=== PATIENT | female | born 1945 | race Caucasian/White ===

== ENCOUNTER 2017-01-05 11:40 | Observation (INO) | payer MEDICARE ==
--- NOTE | ~2017-01-05 | CT3 ---
[facility] A Service of [facility] & [facility] RADIOLOGY TEXT RESULTS PATIENT: LEX DOBBINS LOCATION: [facility] 55- : 46 UNIT #: [id number] AGE: [address]: Nelli Dockery MD SEX: F ORDER DR: [id number] [facility] [address] [facility]. [place], [place] [address] [id number] MR#: [id number] Acc #: [id number] NAME: LEX DOBBINS : 1945 SEX: F STUDY DATE/TIME: 01/06/2017 12:00 UNIT: [facility] ROOM: [facility] STUDY DESCRIPTION: CT Abd and Pelv WWo Cont Attending Physician: Nelli Dockery M.D. Ordering Physician: Patrick Shirley Jr., M.D. Primary Care Physician: Abner Atkinson M.D. MEDICAL IMAGING REPORT This report is preliminary unless electronic signature is present EXAM CT abdomen and pelvis with without contrast, 01/06/2017 at 12 o'clock hours HISTORY Evaluate renal masses seen on CT angiogram of the chest performed 01/05/2017. No abdominal complaints. COMPARISON CT angiogram of the chest, 01/05/2017 TECHNIQUE Helical noncontrasted images were obtained from the lung bases to the iliac crests. Postcontrast arterial phase images were obtained through the abdomen. 90-second delayed phase images were obtained through the abdomen and pelvis and 3-minute delayed phase contrast images were obtained through the abdomen. Sagittal and coronal reconstructions were performed on the 90-second delayed phase series. Contrast was Isovue-370, 100 mL. Total exam DLP 2,792 mGy- cm. This CT exam was performed with one or more of the following radiation dose reduction techniques: automatic exposure control, adjustment of mA and/or kV according to patient size, and iterative reconstruction. FINDINGS Images through the lung bases are clear. There are no pleural effusions. Hiatal hernia is unchanged. The noncontrasted images through the abdomen demonstrate increased density in the gallbladder related to vicarious excretion of contrast from yesterday's CT. There are no gallstones. The right kidney has a normal noncontrasted appearance. The left kidney confirms the presence of a mass, mixed in density with areas measuring as low as 0 and as high as 34. There are calcifications along the anterior margin of the mass. [facility] A Service of [facility] RADIOLOGY TEXT RESULTS PATIENT: LEX DOBBINS LOCATION: [facility] 551- : 46 UNIT #: [id number] AGE: [address]: Nelli Dockery MD SEX: F ORDER DR: Postcontrast arterial phase, 90-second delayed phase and 3-minute delayed phase images demonstrate heterogeneous enhancement in this mass which measures up to 5.0 x 5.3 x 4.9 cm. This is contained within the renal capsule with no extension into the renal vein or in the perinephric space or Gerota's fascia. This is most likely renal cell carcinoma until proven otherwise. The adrenal glands are normal. The ureters are normal. The stomach, small bowel and colon have a normal noncontrasted appearance. There is no lymphadenopathy or ascites. CT pelvis demonstrates a normal appearance to the bladder. No bone lesions are seen. IMPRESSION CT abdomen and pelvis confirms the presence of a heterogeneously enhancing suspicious mass in the left kidney measuring up to 5.3 x 5.0 x 4.9 cm. This measures between 0 and 34 Hounsfield units precontrast and up to 150 Hounsfield units postcontrast. This is a renal cell carcinoma until proven otherwise. This is contained within the renal capsule with no extension into the perinephric fat or Gerota's fascia. The left renal vein appears normal and there is no adenopathy or distant metastatic disease seen. Urologic surgical consultation is recommended. STAT * RESULT Dictated by... Debra Cavazos M.D. THIS IS AN ELECTRONICALLY VERIFIED REPORT Debra Cavazos M.D. at 01/06/2017 1:34 PM MITCHELL/abilio TD: 01/06/2017 13:16 JOB #: [id number] MEDICAL IMAGING REPORT COPY
--- NOTE | ~2017-01-05 | CR72 ---
[facility] A Service of [facility] RADIOLOGY TEXT RESULTS PATIENT: LEX DOBBINS LOCATION: [facility] 551-01 : 46 UNIT #: [id number] AGE: [address]: Nelli Dockery MD SEX: F ORDER DR: [id number] [facility] [address] [facility]. [place], [place] [address] [id number] I MR#: [id number] Acc #: [id number] NAME: LEX DOBBINS : 1945 SEX: F STUDY DATE/TIME: 01/05/2017 11:31 UNIT: [facility] ROOM: [id number] STUDY DESCRIPTION: CR Chest Single View Portable Attending Physician: Nelli Dockery M.D. Ordering Physician: Gomez Gar M.D. Primary Care Physician: Abner Atkinson M.D. MEDICAL IMAGING REPORT This report is preliminary unless electronic signature is present EXAM Frontal chest, 01/05/2017 INDICATIONS Chest pain, dyspnea, left arm tingling, shortness of air since 10:00 today. TECHNIQUE Frontal chest, no comparisons. FINDINGS Cardiac silhouette is borderline in size. Interstitial prominence throughout both lungs without distinct cephalization of the vasculature is more in keeping with underlying fibrosis and scarring than edema but should be correlated clinically. We have no comparisons for assessment of chronicity. There is no pneumothorax, effusion or dense consolidation. IMPRESSION 1. Borderline cardiac size. Interstitial prominence is nonspecific but favored to represent underlying fibrosis and scarring, rather than mild edema. Correlate with volume status. We have no comparisons. Dictated by... Terrell Turner M.D. THIS IS AN ELECTRONICALLY VERIFIED REPORT Terrell Turner M.D. at 01/06/2017 7:29 AM JASON/courtney TD: 01/05/2017 17:47 JOB #: [id number] MEDICAL IMAGING REPORT [facility] A Service of [facility] RADIOLOGY TEXT RESULTS PATIENT: LEX DOBBINS LOCATION: B 551-01 : 46 UNIT #: [id number] AGE: [address]: Nelli Dockery MD SEX: F ORDER DR: COPY
--- NOTE | ~2017-01-05 | CT16 ---
[facility] A Service of [facility] & [facility] RADIOLOGY TEXT RESULTS PATIENT: LEX DOBBINS LOCATION: [facility] 551-01 : 46 UNIT #: [id number] AGE: [address]: Nelli Dockery MD SEX: F ORDER DR: [id number] [facility] [address] [facility] [place], [place] [address] [id number] E MR#: [id number] Acc #: [id number] NAME: LEX DOBBINS : 1945 SEX: F STUDY DATE/TIME: 01/05/2017 14:16 UNIT: [facility] ROOM: STUDY DESCRIPTION: CT Angio Chest for PE Attending Physician: Home Matthews D.O. Ordering Physician: Gomez Gar M.D. Primary Care Physician: Abner Atkinson M.D. MEDICAL IMAGING REPORT This report is preliminary unless electronic signature is present EXAM CT scan of the chest with contrast, 01/05/2017. HISTORY Chest pain beginning at 10 a.m. this morning. History of hypertension. Evaluate for pulmonary embolus. TECHNIQUE Spiral CT was performed through the chest following intravenous contrast administration using pulmonary embolism protocol. 3-D reconstructions of the chest were then performed following intravenous contrast administration. This CT exam was performed with one or more of the following radiation dose reduction techniques: automatic exposure control, adjustment of mA and/or kV according to patient size, and iterative reconstruction. FINDINGS There is no CT evidence for pulmonary embolus. The heart is normal in size. There is no significant thoracic adenopathy. There are no pleural effusions. There is a moderate sized hiatal hernia. The lungs are clear. Images of the upper abdomen demonstrate incompletely visualized heterogeneously enhancing mass on the midportion of the left kidney, measuring 4.4 cm x 4.3 cm. It is highly suspicious for renal cell carcinoma. Correlation with nonemergent CT scan of the kidneys with contrast, using dedicated renal protocol or renal MRI with gadolinium, is strongly recommended for further evaluation. Findings were called to the ordering clinician at 2:45 p.m. on 01/05/2017. IMPRESSION 1. No CT evidence for pulmonary embolus. 2. Moderate-sized hiatal hernia. [facility]. [facility] A Service of [facility] & [facility] RADIOLOGY TEXT RESULTS PATIENT: LEX DOBBINS LOCATION: [facility] 551-01 : 46 UNIT #: [id number] AGE: [address]: Nelli Dockery MD SEX: F ORDER DR: 3. 4.4-cm heterogeneously enhancing mass on the midportion of the left kidney, which is incompletely visualized on this examination. The mass is highly suspicious for renal cell carcinoma. Correlation with nonemergent CT scan of the abdomen and pelvis with contrast, using dedicated renal protocol or renal MRI, with gadolinium, is recommended for further evaluation of this finding. STAT * RESULT Dictated by... Alton Christian M.D. THIS IS AN ELECTRONICALLY VERIFIED REPORT Alton Christian M.D. at 01/06/2017 10:48 AM TRAIVS/aura TD: 01/05/2017 14:56 JOB #: [id number] MEDICAL IMAGING REPORT COPY
--- NOTE | ~2017-01-05 | EKG ---
PATIENT: LEX DOBBINS UNIT #: [id number] Ventricular Rate: 64 BPM Atrial Rate: 64 BPM P-R Interval: 144 ms QRS Duration: 80 ms Q-T Interval: 430 ms QTC Calculation(Bezet): 443 ms P Boyd: 55 degrees Calculated R Boyd: 75 degrees Calculated T Boyd: -14 degrees Diagnosis Line: Normal sinus rhythm Diagnosis Line: non diagnostic Q waves in leads 1 and Avl Diagnosis Line: Abnormal ECG Diagnosis Line: When compared with ECG of 06-JAN-2017 05:33, Diagnosis Line: (unconfirmed) Diagnosis Line: T wave inversion no longer evident in Anterior Diagnosis Line: leads Diagnosis Line: Confirmed by CHUCK ANGEL MD ([id number]) on 01/07/2017 Diagnosis Line: 7:32:37 PM INTERPRETING MD: STANLEY TORO
--- NOTE | ~2017-01-05 | HP ---
Unit #: [id number] #: [id number] Patient: LEX DOBBINS [id number] [facility]. [address] [place], [place] [address] [id number] I MR#: [id number] NAME: LEX DOBBINS ROOM: 551 Age: 71 Sex: F Admission Date: 01/05/2017 : 1945 Attending Physician: Nelli Dockery M.D. Primary Care Physician: Abner Atkinson M.D. HISTORY AND PHYSICAL HISTORY OF PRESENT ILLNESS This is a 71-year-old white female, with a history of hypertension, hyperlipidemia but intolerant to statins, a nonsmoker, who came to the emergency room with recurrent midsternal chest pain that radiating into the left side of her chest wall into her left shoulder. She said it started yesterday morning after she got up. She said it was a pushing/aching sensation. She said it was waxing and waning at first but then intensified. She got a little clammy and short of breath. She could not get comfortable in any sitting position. She said she got up and walked around. She took a baby aspirin and it eased off, and then a couple hours later it reoccurred. On a pain scale of 1-10, she rated it about a 9 or 10. She said she just felt short of breath and became weak and clammy. By the time she made it to the emergency room, the pain had eased off again. She said they gave her additional 3 baby aspirin and some sublingual nitroglycerin. She denies any pain in her jaws, bilateral neck, back or abdomen. She had not had any recent nausea, vomiting or diarrhea. No dizziness, pre-syncope or syndrome. Denies paroxysmal nocturnal dyspnea or orthopnea. No recent cough, fever or chills. In the emergency room the patient's blood pressure was 155/69, heart rate 95, respirations 18, temperature 97.0. O2 sat is 94%. Initial cardiac enzymes are negative. EKG does show some T wave inversion and 0.[address] depression in inferior and anterolateral leads, lateral Q waves noted. The patient's chest x-ray shows interstitial prominence, nonspecific. Questionable fibrosis versus mild edema. CT of the chest was performed. It revealed no pulmonary embolism, moderate hiatal hernia. Also showed a 4.4 cm mass in the mid left kidney, questionable renal carcinoma. The patient's D-dimer was elevated at 2,900. BNP was 312. The patient received additional aspirin and Nitrostat. The patient will be admitted with chest pain for further evaluation. Also, nephrology and urology have been consulted due to the incidental finding of the renal mass. PAST MEDICAL HISTORY 1. Hypertension. 2. Hyperlipidemia, intolerant to statins. 3. Stress test 2012 at [facility]; told normal. Details unavailable. 4. In 04/2013 two-D echo - LVEF of greater than 55%, mild left atrial enlargement, iqcwdxeo-hi-howoex mitral annular calcification with mild mitral regurgitation, mild tricuspid regurgitation with elevated RVSP of 40 to 50 mmHg. AV leaflets sclerotic but no stenosis. 5. Nonsmoker. Unit #: [id number] #: [id number] Patient: LEX DOBBINS PAST SURGICAL HISTORY None. HOME MEDICATIONS 1. Aspirin 81 mg p.o. daily. 2. Diltiazem 24 hour 240 mg 1 tablet daily. 3. Lisinopril 20 mg p.o. at bedtime. ALLERGIES No known drug allergies. SOCIAL HISTORY The patient lives with her spouse. The patient still works at [employer]. She is very active, exercises by walking frequently. No alcohol, tobacco or illicit drug abuse. FAMILY HISTORY Her mother in her 60s of congestive heart failure. She had some type of valve surgery. Her father had some type of valve surgery and in his 60s of coronary artery disease. She had an older brother who in his 50s after having coronary artery bypass graft, but he was a heavy drinker. REVIEW OF SYSTEMS CONSTITUTIONAL: Denies fevers or chills. No recent weight gain or weight loss. HEENT: Denies headache or dizziness. No visual or hearing changes. No lymphadenopathy, thyromegaly. No difficulty swallowing. CARDIOVASCULAR: Chest pain present. Denies palpitations. Denies increased lower extremity edema. PULMONARY: Increased shortness of breath with the chest pain. Denies paroxysmal nocturnal dyspnea or orthopnea. GI: Denies nausea, vomiting, diarrhea or abdominal pain. NEUROLOGIC: No focal weakness. PHYSICAL EXAMINATION GENERAL: On exam, the patient is a 71-year-old white female, in no acute respiratory distress. She is awake, alert and oriented. VITAL SIGNS: Currently blood pressure is 129/58, heart rate 68, respirations 18, temperature 98.7, O2 sats 95% on room air. NECK: Trachea midline. No thyromegaly or lymphadenopathy. Normal carotid upstrokes. No jugular venous distention. HEART: S1, S2, regular rate and rhythm. A soft systolic murmur at left sternal border. LUNGS: Diminished with some faint crackles and coarse rales in right base; otherwise, clear. ABDOMEN: Soft, nontender. Positive bowel sounds present. EXTREMITIES: Pedal pulses are palpable. No pedal edema. DIAGNOSTIC STUDIES LABORATORY DIAGNOSTIC DATA: Glucose is 89, BUN 12, creatinine 0.9, eGFR above 60, sodium 139, potassium 4.3, chloride 105, CO2 23, calcium 9.3, total protein 7.3, albumin 4, bili total 0.5, AST 19, ALT 14, alkaline phosphatase 79. BNP is 312. WBC is 5.7, hemoglobin 13.6, hematocrit 41.4, platelets 192. Initial cardiac enzymes - CK-MB 1.6, troponin less than 0.05; CK-MB 1.5, troponin less than let 0.05. D-dimer is 2,909. Unit #: [id number] #: [id number] Patient: LEX DOBBINS IMAGING: Chest x-ray shows borderline cardiac size, interstitial prominence that is nonspecific but favored to represent underlying fibrosis and scarring rather than mild edema. CT of chest with contrast - No evidence of pulmonary embolism. Moderate sized hiatal hernia. A 4.4 cm enhancing mass in the mid portion of the left kidney; suspicion for renal cell carcinoma. CARDIOVASCULAR: EKG shows normal sinus rhythm with ventricular rate 93 beats per minute. Q waves in V4-V6. ST-T wave abnormalities in inferior and anterolateral leads with 0.5 mm to [address] depression in inferior and anterolateral leads. Otherwise, slow R wave progression. IMPRESSION 1. Chest pain. 2. Dyspnea. 3. Unstable angina. 4. Renal mass, questionable malignancy. 5. Hypertension. 6. Hyperlipidemia - intolerant to statin. 7. LVEF of greater than 55% with mild left atrial enlargement, uqestvrh-um-xtsvly mitral anular calcification with mild mitral regurgitation, mild tricuspid regurgitation with RVSP of 40 to 50 mmHg. AV leaflets sclerotic with no stenosis. 8. Nonsmoker. PLAN 1. The patient has been admitted to followup her chest pain. Will continue to monitor cardiac enzymes. Her EKG does have some EKG changes indicative of ischemia. With the patient's multiple risk factors, including strong family history of coronary artery disease, it is felt that she needs a cardiac cath to further evaluate ischemic heart disease. 2. Discussed with the patient the risks and benefits, including risk of bleeding, myocardial infarction, stroke and even . The patient verbalizes understanding and agrees to proceed. 3. The patient is continued on aspirin, beta-trisha and will start on pravastatin 40 mg p.o. daily. The patient states she took Lipitor and Crestor in the past. Will attempt to try the pravastatin. 4. Increase her Lovenox to 1 mg/kg subcu b.i.d. 5. Obtain a two-D echo to reevaluate her LV function and valves. 6. Will repeat a troponin later today and an EKG. 7. Dr. Goodman has seen the patient for the left renal mass. Plans are to a CT of the abdomen and pelvis with specific instructions for thin cuts through the kidneys to evaluate. Likely will need some type of surgical intervention in the near future. 8. On exam, there are no signs or symptoms of acute congestive heart failure. Further recommendations pending the heart catheterization and the echo. Further recommendations pending per Dr. Dockery. Dictated by Nely Hobbs A.P.R.N. for Nelli Dockery M.D. CEC/db Unit #: [id number] #: [id number] Patient: LEX DOBBINS TD: 01/06/2017 09:28 JOB #: [id number] HISTORY AND PHYSICAL X Nely Hobbs APRN HISTORY AND PHYSICAL
--- NOTE | ~2017-01-05 | EKG ---
PATIENT: LEX DOBBINS UNIT #: [id number] Ventricular Rate: 93 BPM Atrial Rate: 93 BPM P-R Interval: 170 ms QRS Duration: 80 ms Q-T Interval: 372 ms QTC Calculation(Bezet): 462 ms P [place]: 34 degrees Calculated R [place]: 99 degrees Calculated T [place]: -19 degrees Diagnosis Line: Normal sinus rhythm Diagnosis Line: Septal infarct , age undetermined Diagnosis Line: Lateral infarct , age undetermined Diagnosis Line: Cannot rule out Inferior infarct , age Diagnosis Line: undetermined Diagnosis Line: Abnormal ECG Diagnosis Line: No previous ECGs available Diagnosis Line: Confirmed by GLEN HARDY MD ([id number]) on Diagnosis Line: 01/06/2017 12:06:42 AM INTERPRETING MD: ANTONY TORO
--- NOTE | ~2017-01-05 | CO ---
Unit #: [id number] #: [id number] Patient: LEX DOBBINS [id number] [address] [place], [place] [address] [id number] I MR#: [id number] NAME: LEX DOBBINS ROOM: 55 Age: 71 Sex: F Admission Date: 01/05/2017 : 1945 Attending Physician: Nelli Dockery M.D. Primary Care Physician: Abner Atkinson M.D. Consultation Date: 01/06/2017 CONSULTATION REPORT JOB NOTE: VERIFY CC CHIEF COMPLAINT Chest pain. HISTORY OF PRESENT ILLNESS Ms. Weaver is a 71-year-old woman, who had some chest pain. CT scan of the chest showed 4.4 left renal mass which looks suspicious for renal cell carcinoma. She denies gross hematuria. She denies flank pain. The CAT scan potentially that was found this mass, which she is with and sent this for. PAST MEDICAL HISTORY Negative for urologic problems. Positive for high blood pressure, takes lisinopril, diltiazem, and aspirin. SOCIAL HISTORY She denies smoking. She does drink. FAMILY HISTORY Noncontributory. ALLERGIES No known drug allergies. PHYSICAL EXAMINATION VITAL SIGNS: Afebrile. Vital signs stable. ABDOMEN: Soft. No rebound or guarding. There is still no CVA tenderness. SKIN: No bruising. No rash. DIAGNOSTIC STUDIES LABORATORY RESULTS: Creatinine 0.9. Urinalysis is normal. There is no microscopic hematuria. White count is normal. ASSESSMENT Left renal mass seen on CT of the chest. Order CT scan of the abdomen and pelvis with and without IV contrast. The patient is undergoing cardiac evaluation for chest pain. We will continue to follow along with you. Thank you for the kind referral. Dictated by... Unit #: [id number] #: [id number] Patient: LEX DOBBINS Felisa Lees/aris TD: 01/06/2017 08:20 JOB #: [id number] CC: Sanjiv Montenegro M.D. CONSULTATION REPORT X Joaquín Zurita MD CONSULTATION REPORT
--- NOTE | ~2017-01-05 | DS ---
Unit #: [id number] #: [id number] Patient: LEX DOBBINS [id number] [facility] [address] [place], [place] [address] [id number] MR#: [id number] NAME: LEX DOBBINS ROOM: 55 Age: 71 Sex: F Admission Date: 01/05/2017 : 1945 Discharge Date: 01/08/2017 Attending Physician: Nelli Dockery M.D. Primary Care Physician: Abner Atkinson M.D. DISCHARGE SUMMARY JOB NOTE: CC: [facility]ICIAN. DISCHARGE DIAGNOSES 1. Chest pain, ruled out for an acute myocardial infarction. 2. Status post cardiac catheterization on 01/07/[address] Perez at [facility] that reveals left main normal. Left anterior descending artery normal. Circumflex artery with 50% to 60% stenosis mid vessel. Right coronary artery with mid segment stenosis of 70%. Posterior descending artery and posterior left ventricular branches normal. Ejection fraction of 60%. 3. Hypertension. 4. Hyperlipidemia. 5. Statin intolerance. 6. Left renal mass, questionable malignancy. 7. Nonsmoker. DISCHARGE MEDICATIONS Ranexa 500 mg b.i.d., Imdur 30 mg daily, metoprolol tartrate 50 mg b.i.d., and aspirin 81 mg daily. HOSPITAL COURSE This is a 71-year-old female who presented to the emergency room with a complaint of shortness of breath and chest pain. She was ruled out for an acute myocardial infarction where her cardiac enzymes and troponin were negative. In the emergency room, CTA of the chest was done to rule out pulmonary embolism, of which there was no evidence. There was an incidental finding of a 4.4 cm mass in the left kidney that was highly suspicious for renal cell carcinoma. CT of the abdomen and pelvis revealed a left kidney mass of 5.3 x 5.0 x 4.9 cm that was suspicious for renal cell carcinoma until proven otherwise. There was no evidence of metastatic disease. [facility] was asked to see the patient where they felt that the mass was malignant. She will need to be cleared for surgery first however. Renal was asked to see the patient and she was started on Mucomyst and IV fluids prior to cardiac catheterization to prevent contrast-induced nephropathy. She underwent cardiac catheterization, where she was found to have 50% to 60% stenosis in the left circumflex artery and 70% to 75% in the right coronary artery. The patient will need to be tried on medical therapy and antianginal control with Ranexa. Her renal function remained normal. Cholesterol levels were obtained, which found her to have elevated cholesterol of 257 and elevated LDL of 189. The patient has been at home on rosuvastatin and Lipitor was discontinued. Dr. Dockery felt that the patient could undergo surgery at low to moderate, but acceptable risk. She is stable for discharge today. Unit #: [id number] #: [id number] Patient: LEX DOBBINS PHYSICAL EXAMINATION VITAL SIGNS: Blood pressure 122/65 and heart rate 62. CHEST: Clear to auscultation. HEART: S1 and S2. Regular rate and rhythm. ABDOMEN: Soft. Bowel sounds are present. EXTREMITIES: Without leg edema. DIAGNOSTIC STUDIES LABORATORY RESULTS: Glucose 89, BUN 10, creatinine 0.5, sodium 137, potassium 3.8, cholesterol 257, triglycerides 96, LDL 189, HDL 49, and TSH 2.33. White count 4.7, hemoglobin 12.8, hematocrit 38.7, and platelet count 181. IMAGING STUDIES: CTA of the chest shows a 4.4 cm enhancing mass in the mid portion of the left kidney, highly suspicious for renal cell carcinoma. CT of the abdomen and pelvis reveals heterogeneously enhancing suspicious mass in the left kidney measuring up to 5.3 x 5.0 x 4.9 cm. This is renal cell carcinoma until proven otherwise. No distant metastatic disease was seen. CARDIOVASCULAR STUDIES: 2D echocardiogram on 01/06/2017 shows ejection fraction of 60% with impaired left ventricular relaxation. Normal structures of aortic and tricuspid valve. There is trace mitral regurgitation. CONSULTATIONS 1. Dr. Jacobs for renal management. 2. Dr. Zurita, Urology. DISCHARGE INSTRUCTIONS 1. The patient will be discharged home today. 2. Follow up with Dr. Dockery on 02/21/2017 at 9:45 a.m. 3. Follow up with Dr. Zurita in 2 weeks as an outpatient. 4. The patient is okay to undergo surgery of ybc-nf-kigmeptg, but acceptable risk. 5. 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 6. Continue on beta-trisha, Imdur, and Ranexa for angina control. Dictated by... Nish Vivar/aris TD: 01/09/2017 15:19 JOB #: [id number] DISCHARGE SUMMARY X Hari Albert APRN X DISCHARGE SUMMARY
--- NOTE | ~2017-01-05 | EKG ---
PATIENT: LEX DOBBINS UNIT #: [id number] Ventricular Rate: 60 BPM Atrial Rate: 60 BPM P-R Interval: 144 ms QRS Duration: 84 ms Q-T Interval: 454 ms QTC Calculation(Bezet): 454 ms P [place]: 19 degrees Calculated R [place]: 80 degrees Calculated T [place]: -36 degrees Diagnosis Line: Normal sinus rhythm Diagnosis Line: Lateral infarct (cited on or before 05-JAN-2017) Diagnosis Line: ST and T wave abnormality, consider anterior Diagnosis Line: ischemia Diagnosis Line: Abnormal ECG Diagnosis Line: When compared with ECG of 05-JAN-2017 11:17, Diagnosis Line: Vent. rate has decreased BY 33 BPM Diagnosis Line: Serial changes of evolving Lateral infarct Present Diagnosis Line: Confirmed by STANLEY TORO, CHUCK ([id number]) on 01/07/2017 Diagnosis Line: 7:27:00 PM INTERPRETING MD: STANLEY TORO
[2017-01-05 12:02] LABS: POC - CKMB 1.6 ng/mL (0.0-7.9); POC - TROPONIN <0.05 ng/mL (<=0.05)
[2017-01-05 13:08] LABS: BASOPHIL% 0.7 % (0-2.5); EOSINOPHIL# 0.1 X10e3 (0-0.7); EOSINOPHIL% 1.3 % (0.0-7.0); LYMPHOCYTE# 1.5 X10e3 (1.0-3.5); LYMPHOCYTE% 24.5 % (17.0-45.0); MEAN CELL VOLUME 91.3 FL (83-96); MEAN CORPUSCULAR HEMOGLOBIN 30.5 PG (28-34); MEAN CORPUSCULAR HGB CONC 33.4 g/dL (30-36); MEAN PLATELET VOLUME 10.9 FL (6.5-11.5); MONOCYTE# 0.4 X10e3 (0-1.0); MONOCYTE% 6.2 % (3.0-12.0); NEUTROPHIL# 4.2 X10e3 (1.5-7.1); NEUTROPHIL% 67.3 % (40-75); PLATELET COUNT 205 X10e3 (140-420); RED CELL DISTRIBUTION WIDTH 13.8 % (11.0-15.5); WHITE BLOOD COUNT 6.2 X10e3 (4.0-10.5)
[2017-01-05 13:11] LABS: DIFF IND NO
[2017-01-05 13:32] LABS: ALKALINE PHOSPHATASE 79 U/L (32-92); ALT (SGPT) 14 U/L (10-40); AST (SGOT) 19 U/L (10-42); BILIRUBIN,TOTAL 0.5 mg/dL (0.2-2.0); BLOOD UREA NITROGEN 12 mg/dL (9-23); BUN/CREATININE RATIO 17.14; CALCIUM SERUM 9.5 mg/dL (8.4-10.2); CARBON DIOXIDE 28 mmol/L (22-31); CHLORIDE 104 mmol/L (100-111); CREATININE SERUM 0.7 mg/dL (0.6-1.4); GLOM FILT RATE Estimated ABOVE60 mL/min (>60); GLUCOSE FASTING 110 mg/dL (70-110); POTASSIUM 4.5 mmol/L (3.5-5.1); PROTEIN TOTAL SERUM 7.3 g/dL (6.0-8.3); SODIUM 140 mmol/L (135-145)
[2017-01-05 14:25] LABS: POC - CKMB 1.5 ng/mL (0.0-7.9); POC - TROPONIN <0.05 ng/mL (<=0.05)
[2017-01-05] MEDS ORDERED: LISINOPRIL20 MG PO (15:19)
[2017-01-05] MEDS ORDERED: DILTIAZEM 24HR240 M1 PO (15:19)
[2017-01-06 03:59] LABS: URINE APPEARANCE CLEAR; URINE BILIRUBIN NEG (NEG); URINE BLOOD NEG (NEG); URINE COLOR YELLOW; URINE GLUCOSE NEG (NEG); URINE KETONE NEG (NEG); URINE LEUKOCYTE ESTERASE 1+ (NEG); URINE NITRATE NEG (NEG); URINE PROTEIN NEG (NEG); URINE SPECIFIC GRAVITY 1.028 (1.003-1.035); URINE UROBILINOGEN 0.2 MG/DL (NEG)
[2017-01-06 04:02] LABS: U HYALINE CASTS AUWI 0-2 /[LPF]; URBCS1 AUWI 0-2 /[HPF] (0-2); URINE BACTERIA AUWI NEG (NEGATIVE); URINE SQUAMOUS EPITHELIAL CELL NONE SEEN /[HPF]
[2017-01-06 06:52] LABS: BASOPHIL% 0.5 % (0-2.5); EOSINOPHIL# 0.2 X10e3 (0-0.7); EOSINOPHIL% 2.6 % (0.0-7.0); HEMATOCRIT 41.4 % (35.0-45.0); HEMOGLOBIN 13.6 gm/dL (12.0-16.0); LYMPHOCYTE# 1.8 X10e3 (1.0-3.5); LYMPHOCYTE% 32.3 % (17.0-45.0); MEAN CELL VOLUME 92.8 FL (83-96); MEAN CORPUSCULAR HEMOGLOBIN 30.4 PG (28-34); MEAN CORPUSCULAR HGB CONC 32.8 g/dL (30-36); MONOCYTE# 0.5 X10e3 (0-1.0); NEUTROPHIL# 3.2 X10e3 (1.5-7.1); NEUTROPHIL% 56.6 % (40-75); PLATELET COUNT 192 X10e3 (140-420); RED BLOOD COUNT 4.46 X10e (3.90-5.30); WHITE BLOOD COUNT 5.7 X10e3 (4.0-10.5)
[2017-01-06 06:58] LABS: DIFF IND NO
[2017-01-06 07:37] LABS: BLOOD UREA NITROGEN 12 mg/dL (9-23); BUN/CREATININE RATIO 13.33; CALCIUM SERUM 9.3 mg/dL (8.4-10.2); CARBON DIOXIDE 23 mmol/L (22-31); CHLORIDE 105 mmol/L (100-111); CHOLESTEROL 257 mg/dL (0-200); CREATININE SERUM 0.9 mg/dL (0.6-1.4); GLOM FILT RATE Estimated ABOVE60 mL/min (>60); GLUCOSE FASTING 89 mg/dL (70-110); HDL CHOLESTEROL 49 mg/dL (35-95); LDL/HDL RATIO 4 RATIO (0-4); POTASSIUM 4.3 mmol/L (3.5-5.1); SODIUM 139 mmol/L (135-145); TRIGLYCERIDES 96 mg/dL (10-160)
[2017-01-06 07:40] LABS: LDL CHOLESTEROL 189 mg/dL (-130)
[2017-01-07 05:26] LABS: HEMATOCRIT 38.7 % (35.0-45.0); HEMOGLOBIN 12.8 gm/dL (12.0-16.0); MEAN CELL VOLUME 92.6 FL (83-96); MEAN CORPUSCULAR HEMOGLOBIN 30.7 PG (28-34); MEAN CORPUSCULAR HGB CONC 33.1 g/dL (30-36); MEAN PLATELET VOLUME 10.7 FL (6.5-11.5); RED BLOOD COUNT 4.18 X10e (3.90-5.30); RED CELL DISTRIBUTION WIDTH 13.6 % (11.0-15.5); WHITE BLOOD COUNT 4.7 X10e3 (4.0-10.5)
[2017-01-07 05:35] LABS: INR 1.1; PARTIAL THROMBOPLASTIN TIME 29.2 SECONDS (23.5-31.3); PROTHROMBIN TIME (PATIENT) 11.7 SECONDS (9.6-11.5)
[2017-01-07 06:37] LABS: BLOOD UREA NITROGEN 12 mg/dL (9-23); BUN/CREATININE RATIO 17.14; CALCIUM SERUM 8.8 mg/dL (8.4-10.2); CARBON DIOXIDE 24 mmol/L (22-31); CHLORIDE 107 mmol/L (100-111); CREATININE SERUM 0.7 mg/dL (0.6-1.4); GLOM FILT RATE Estimated ABOVE60 mL/min (>60); GLUCOSE FASTING 80 mg/dL (70-110); POTASSIUM 4.1 mmol/L (3.5-5.1); SODIUM 140 mmol/L (135-145)
[2017-01-08 06:14] LABS: BLOOD UREA NITROGEN 10 mg/dL (9-23); CALCIUM SERUM 8.4 mg/dL (8.4-10.2); CARBON DIOXIDE 24 mmol/L (22-31); CHLORIDE 110 mmol/L (100-111); CREATININE SERUM 0.5 mg/dL (0.6-1.4); GLOM FILT RATE Estimated ABOVE60 mL/min (>60); GLUCOSE FASTING 89 mg/dL (70-110); POTASSIUM 3.8 mmol/L (3.5-5.1); SODIUM 137 mmol/L (135-145)
[2017-01-08] MEDS ORDERED: LIPITOR PO (10:32)
[2017-02-21] MEDS ORDERED: LOPRESSOR PO (10:31)
[2017-02-21] MEDS ORDERED: RANEXA500 MG PO (10:34)
[2017-02-21] MEDS ORDERED: IMDUR PO (10:35)
== END 2017-01-08 12:38 | disposition home or self-care (01) ==
LOC: CED 11:40 → CEDOF 15:10 → C5B 21:22
PROVIDERS: Emergency Medicine; Internal Medicine Cardiovascular Disease; Internal Medicine Nephrology
DX: I25.110 Atherosclerotic heart disease of native coronary artery with unstable angina pectoris (principal); I10 Essential (primary) hypertension; E78.5 Hyperlipidemia, unspecified; T46.6X5D Adverse effect of antihyperlipidemic and antiarteriosclerotic drugs, subsequent encounter; I08.1 Rheumatic disorders of both mitral and tricuspid valves; N28.89 Other specified disorders of kidney and ureter; K44.9 Diaphragmatic hernia without obstruction or gangrene; R94.31 Abnormal electrocardiogram [ECG] [EKG]; Z79.82 Long term (current) use of aspirin; Z88.5 Allergy status to narcotic agent
CPT/HCPCS: 36415; 71010; 71275; 74178; 80048; 80053; 80061; 81003; 82553; 82947; 83880; 84443; 84484; 85025; 85027; 85379; 85610; 85730; 93005; 93306; 94640; 94760; 96372; 99285; C1769; C1887; C1894; G0378; J1644; J1650; J2250; J3010; Q9967

== ENCOUNTER → 2017-02-07 | Outpatient (CLI) | payer OTHER, MEDICARE ==
[~2017-02-07] MED LIST: ASPIRIN81 M2 PO; DILTIAZEM 24HR240 M1 PO; HYDROCODON-ACE1 EAC7 PO; IMDUR PO; LIPITOR PO; LISINOPRIL20 MG PO; LOPRESSOR PO; RANEXA500 MG PO
[2017-02-07 13:39] LABS: HEMATOCRIT 37.4 % (35.0-45.0); HEMOGLOBIN 12.1 gm/dL (12.0-16.0); MEAN CELL VOLUME 93.2 FL (83-96); MEAN CORPUSCULAR HEMOGLOBIN 30.2 PG (28-34); MEAN CORPUSCULAR HGB CONC 32.4 g/dL (30-36); MEAN PLATELET VOLUME 11.6 FL (6.5-11.5); RED BLOOD COUNT 4.01 X10e (3.90-5.30); RED CELL DISTRIBUTION WIDTH 14.5 % (11.0-15.5)
[2017-02-07 14:06] LABS: BUN/CREATININE RATIO 12.85; CALCIUM SERUM 8.9 mg/dL (8.4-10.2); CREATININE SERUM 0.7 mg/dL (0.6-1.4); GLOM FILT RATE Estimated 87.8 mL/min (>60); POTASSIUM 4.4 mmol/L (3.5-5.1)
== END | disposition home or self-care (01) ==
LOC: CAMB 11:47
PROVIDERS: Urology
DX: Z01.812 Encounter for preprocedural laboratory examination (principal)
CPT/HCPCS: 36415; 80048; 85027

== ENCOUNTER 2017-02-21 11:38 | Inpatient (IN) | payer MEDICARE ==
--- NOTE | ~2017-02-21 | DS ---
Unit #: [id number] #: [id number] Patient: LEX DOBBINS [id number] [address] [address] [id number] I MR#: [id number] NAME: LEX DOBBINS ROOM: 46 Age: 71 Sex: F Admission Date: 02/21/2017 : 1945 Discharge Date: 02/24/2017 Attending Physician: Joaquín Zurita M.D. Primary Care Physician: Abner Atkinson M.D. DISCHARGE SUMMARY PRIMARY DIAGNOSIS Left renal mass. PROCEDURE PERFORMED Left hand-assisted laparoscopic nephrectomy, 02/21/2017, Dr. Zurita. CONSULTANTS Internal medicine. DISPOSITION Home. FOLLOWUP Follow up with Dr. Zurita in two to four weeks. DISCHARGE MEDICATIONS Same as admission medications, resuming 1. Low-dose aspirin 81 mg. 2. Lopressor. 3. Ranexa. 4. Imdur. 5. Add [place] 5/325 mg #30 for use as needed. HISTORY OF PRESENT ILLNESS This 71-year-old woman presents for elective left nephrectomy for a left renal mass. HOSPITAL COURSE The patient was admitted the day of surgery and the above procedure uneventfully performed. Postoperatively her convalescence was normal, including early ambulation and advancement of diet. On the morning of discharge postoperative day three she is ambulating and tolerating a regular diet with excellent pain control and requests discharge. Note that at the time of discharge her wounds are stable and healing well. Creatinine is 0.8 from postoperative day 2 and hemoglobin 12.0. Pathology pending. Dictated by... Felisa Brandt/leslie Unit #: [id number] #: [id number] Patient: LEX DOBBINS TD: 02/24/2017 13:26 JOB #: [id number] CC: Abner Atkinson M.D. DISCHARGE SUMMARY Page 1 of 1 X Natanael Flores MD X DISCHARGE SUMMARY
--- NOTE | ~2017-02-21 | OR ---
Unit #: [id number] #: [id number] Patient: LEX DOBBINS [id number] [address] [place], [place] [address] [id number] I MR#: [id number] NAME: LEX DOBBINS ROOM: 464 Date of Procedure: 02/21/2017 Admission Date: 02/21/2017 Surgeon: Joaquín Zurita M.D. : 1945 Attending Physician: Joaquín Zurita M.D. Primary Care Physician: Abner Atkinson M.D. OPERATIVE REPORT PREOPERATIVE DIAGNOSIS Left renal mass. POSTOPERATIVE DIAGNOSIS Left renal mass. PROCEDURE PERFORMED Left hand-assisted laparoscopic nephrectomy. HEALTH[employer]ARE CORPORATE ACCOUNT DIRECTOR Jimbo Pyle M.D., Sr. DESCRIPTION OF PROCEDURE After informed consent, she was taken to the operating room, placed on general anesthetic. Then, she was positioned in modified flank with left side up. Her abdomen was prepped and draped in the usual sterile fashion. Carvajal catheter was placed to drainage. The abdomen was insufflated after small midline incision was made. The hand port was placed into the incision and the abdomen was insufflated. Two other ports were made for laparoscopic instruments. Using the sharp and blunt dissection, the white line of Toldt was taken down sharply. The colon was mobilized away from the retroperitoneum. The kidney was mobilized along with the ureter. The ureter was transected. The dissection was carried out up to the hilum and care was taken not to injure the colon. The hilum was transected using laparoscopic stapling device with a vascular load. The remainder of the kidney was dissected free using sharp and blunt dissection as well as the laparoscopic stapler for surrounding attachments. The kidney was removed without difficulty. Repeat inspection showed no active bleeding in the empty renal fossa. Repeat inspection showed no injury to bladder or to the bowel. The incisions were closed using Vicryl suture at the fascia level. Skin edges were approximated using 4-0 Monocryl. 0.5% Marcaine without epinephrine was used for local anesthetic. The patient tolerated the procedure well. All counts were correct at the end of the procedure. Dictated by... Joaquín Zurita M.D. WENDY/aris TD: 02/21/2017 23:39 Unit #: [id number] #: [id number] Patient: LEX DOBBINS JOB #: [id number] OPERATIVE REPORT Page 1 of 1 X Joaquín Zurita MD PROCEDURE OPERATIVE NOTE
--- NOTE | ~2017-02-21 | CO ---
Unit #: [id number] #: [id number] Patient: LEX DOBBINS [id number] [facility] [address] [facility]. [place], [place] [address] [id number] I MR#: [id number] NAME: LEX DOBBINS ROOM: 464 Age: 71 Sex: F Admission Date: 02/21/2017 : 1945 Attending Physician: Joaquín Zurita M.D. Primary Care Physician: Abner Atkinson M.D. CONSULTATION REPORT REASON FOR CONSULTATION Hypertension. HISTORY OF PRESENT ILLNESS The patient is a 71-year-old female with past medical history of hypertension, hyperlipidemia, coronary artery disease, left renal mass, who was admitted by Dr. Zurita for [id number] laparoscopic nephrectomy. [facility] Medicine was consulted for hypertension. Of note, the patient was hospitalized at [facility] January 052016 for chest pain. She underwent cardiac catheterization during that admission that will be described below. Additionally during the course of her evaluation a CT of the abdomen and pelvis showed a left kidney mass suspicious for renal cell carcinoma. She was seen in consultation by Urology. She underwent nephrectomy today. Regarding the patient's chronic medical condition, she does have high blood pressure and cholesterol. She is intolerant to statins. She has been taking her medications as prescribed. Blood pressure currently is 143/98. The patient denies any chest pain, no fever, no cough or cold symptoms, no vomiting or diarrhea. PAST MEDICAL HISTORY 1. Admission to [facility] January 052016 for chest pain. She underwent cardiac catheterization that showed, per the discharge summary, circumflex artery with 50% to 60% stenosis mid vessel, right coronary artery with mid segment stenosis of 70%, ejection fraction of 60%. The plan per the discharge summary was for medical management. She sees Dr. Dockery. 2. Coronary artery disease, followed by Dr. Dockery. 3. Hypertension. 4. Hyperlipidemia, intolerant to statins. 5. Left renal mass concerning for renal cell carcinoma, status post nephrectomy. PAST SURGICAL HISTORY 1. Cardiac catheterization. 2. Left nephrectomy. SOCIAL HISTORY The patient lives with her . There is no tobacco or alcohol use. 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 Unit #: [id number] #: [id number] Patient: LEX DOBBINS FAMILY HISTORY Family history is notable for her mother having congestive heart failure. Both parents had valvular heart disease. ALLERGIES Statins, codeine. HOME MEDICATIONS 1. Aspirin 81 mg daily mg daily. 2. Lopressor 50 mg b.i.d. 3. Ranexa 500 mg b.i.d. 4. Imdur 30 mg daily. REVIEW OF SYSTEMS A complete point review of systems is negative except as indicated in the HPI. The patient states that she has gained about 10 to 15 pounds over the past one to two years. DIAGNOSTIC STUDIES IMAGING: There is an echocardiogram on the chart from January 06, 2017 that showed an ejection fraction of 55% with mild concentric left ventricular hypertrophy, mildly dilated left atrium, mitral annular calcification, right ventricular systolic pressure was normal. PHYSICAL EXAMINATION VITAL SIGNS: Temperature is 97.1. Pulse 59. Respirations 18. Blood pressure 143/98. GENERAL: The patient is a very pleasant female who is awake and alert, in no acute distress. HEENT: The head is atraumatic. Mucous membranes are moist. NECK: Neck is supple. Trachea is midline. CARDIOVASCULAR: Regular rate and rhythm. She does have a 2-3/6 systolic ejection murmur. LUNGS: Lungs are clear to auscultation bilaterally with no increased work of breathing. ABDOMEN: Abdomen is appropriately tender. She does have surgical incisions that are clean, dry and intact. Bowel sounds are present. EXTREMITIES: Nontender with no pedal edema. NEUROLOGIC: The patient is awake and alert. She is oriented x3. She follows commands. PSYCHIATRIC: Mood and affect are normal. The patient is cooperative. SKIN: Skin of examined areas is warm and dry. ASSESSMENT The patient is a 71-year-old female with: 1. Status post left nephrectomy for presumed renal malignancy. 2. Hypertension. 3. Hyperlipidemia, intolerant to statins. 4. History of coronary artery disease. PLAN Regarding hypertension, the patient's blood pressure is currently in the 140s systolic. I have written parameters for which to be called. The patient's home medications have been restarted. Thank you very much for the consultation. We will follow the patient along closely with you. Unit #: [id number] #: [id number] Patient: LEX DOBBINS Dictated by... Felisa Bermudez/rashawn TD: 02/21/2017 20:16 JOB #: [id number] CONSULTATION REPORT Page 1 of 1 X Sarah Nino MD X CONSULTATION REPORT
[~2017-02-21 11:38] MED LIST changes: -ASPIRIN81 M2 PO; -HYDROCODON-ACE1 EAC7 PO
[2017-02-21] MEDS ORDERED: ASPIRIN81 M2 PO (15:18)
[2017-02-22 03:42] LABS: HEMATOCRIT 37.4 % (35.0-45.0); HEMOGLOBIN 12.2 gm/dL (12.0-16.0); MEAN CELL VOLUME 92.6 FL (83-96); MEAN CORPUSCULAR HEMOGLOBIN 30.1 PG (28-34); MEAN CORPUSCULAR HGB CONC 32.5 g/dL (30-36); MEAN PLATELET VOLUME 11.2 FL (6.5-11.5); RED BLOOD COUNT 4.04 X10e (3.90-5.30); RED CELL DISTRIBUTION WIDTH 14.5 % (11.0-15.5); WHITE BLOOD COUNT 9.7 X10e3 (4.0-10.5)
[2017-02-22 04:04] LABS: ALBUMIN SERUM 3.3 g/dL (3.5-5.0); BILIRUBIN,TOTAL 0.9 mg/dL (0.2-2.0); BUN/CREATININE RATIO 8.88; CALCIUM SERUM 8.1 mg/dL (8.4-10.2); CREATININE SERUM 0.9 mg/dL (0.6-1.4); GLOM FILT RATE Estimated 64.8 mL/min (>60); POTASSIUM 4.2 mmol/L (3.5-5.1); PROTEIN TOTAL SERUM 6.1 g/dL (6.0-8.3)
[2017-02-23 03:34] LABS: BASOPHIL% 0.2 % (0-2.5); DIFF IND NO; EOSINOPHIL# 0.1 X10e3 (0-0.7); EOSINOPHIL% 0.8 % (0.0-7.0); LYMPHOCYTE# 0.9 X10e3 (1.0-3.5); LYMPHOCYTE% 11.2 % (17.0-45.0); MEAN CELL VOLUME 92.1 FL (83-96); MEAN CORPUSCULAR HGB CONC 32.6 g/dL (30-36); MEAN PLATELET VOLUME 10.8 FL (6.5-11.5); MONOCYTE# 0.8 X10e3 (0-1.0); MONOCYTE% 9.3 % (3.0-12.0); NEUTROPHIL# 6.4 X10e3 (1.5-7.1); NEUTROPHIL% 78.5 % (40-75); PLATELET COUNT 153 X10e3 (140-420); RED BLOOD COUNT 4.01 X10e (3.90-5.30); RED CELL DISTRIBUTION WIDTH 14.6 % (11.0-15.5); WHITE BLOOD COUNT 8.2 X10e3 (4.0-10.5)
[2017-02-23 04:03] LABS: BUN/CREATININE RATIO 7.5; CALCIUM SERUM 8.2 mg/dL (8.4-10.2); CREATININE SERUM 0.8 mg/dL (0.6-1.4); GLOM FILT RATE Estimated 74.8 mL/min (>60); POTASSIUM 4.4 mmol/L (3.5-5.1)
[2017-02-24] MEDS ORDERED: HYDROCODON-ACE1 EAC7 PO (09:09)
== END 2017-02-24 09:48 | disposition home or self-care (01) | DRG 658 ==
LOC: CSUR 11:38 → CPACUOF 16:30 → C4C 18:04
PROVIDERS: Family Medicine; Urology
PROC: 0TT14ZZ Resection of Left Kidney, Percutaneous Endoscopic Approach (ICD-10-PCS; principal; 2017-02-21 13:30)
DX: C64.2 Malignant neoplasm of left kidney, except renal pelvis (principal); I10 Essential (primary) hypertension; E78.5 Hyperlipidemia, unspecified; I25.10 Atherosclerotic heart disease of native coronary artery without angina pectoris; Z79.82 Long term (current) use of aspirin
CPT/HCPCS: 80048; 80053; 85025; 85027; 88307; 97116; 97162; 97166; 97530; G8978-GP; G8979-GP; G8987-GO; G8988-GO; J1170; J1956; J2250; J3010